=== PATIENT | male | born 1980 | race American Indian/Alaskan Native ===

== ENCOUNTER 2016-11-16 22:38 | Emergency (ER) | payer OTHER ==
[2016-11-17] MEDS ORDERED: DUONEB 0.5 MG-3 MG/3 ML SOLN IH ONE (03:29)
--- NOTE | 2016-11-17 04:51 | Emergency Department Report ---
ED Asthma HPI - General Chief Complaint: Dyspnea/Respdistress Stated Complaint: ASTHMA/CHEST PAIN Time Seen by Provider: 11/17/16 04:33 Source: patient Mode of arrival: Ambulatory Limitations: No Limitations - History of Present Illness Initial Comments: Patient complains of asthma acting up, wheezing, and chest tightness 2 days. States he has been trying to deal with symptoms at home until he couldn't anymore. Patient has a history of asthma which she states last acting up over a year ago when he was hospitalized due to his asthma. He states he has been out of his albuterol for a while. Positive for cough productive of clear-yellow sputum. Denies pressure-type chest pain, radiation into the neck or arm, arm weakness or numbness, GERD or reflux, fever, chills, nausea, vomiting, diarrhea, abdominal pain or discomfort, male symptoms. Denies recent illness. Denies known exposure or process chemist. Reports symptomatic improvement post Duoneb x1. - Related Data Previous Rx's Medication Instructions Recorded Last Taken Type ALBUTEROL Inhaler [ProAir HFA 2 puff IH QID PRN #1 inhalation 11/17/16 Unknown Rx Inhaler] predniSONE [Deltasone] 20 mg PO QDAY #5 tablet 11/17/16 Unknown Rx Allergies Allergy/AdvReac Type Severity Reaction Status Date / Time seafood Allergy Swelling Uncoded 11/16/16 22:56 ED Review of Systems ROS: Stated complaint: ASTHMA/CHEST PAIN Other details as noted in HPI Comment: All other systems reviewed and negative ED Past Medical Hx - Past Medical History Previous Medical History?: Yes Hx Asthma: Yes - Surgical History Past Surgical History?: Yes Additional Surgical History: amputated left 1st toe. - Medications Home Medications: Home Medications Medication Instructions Recorded Confirmed Last Taken Type ALBUTEROL Inhaler [ProAir HFA 2 puff IH QID PRN #1 inhalation 11/17/16 Unknown Rx Inhaler] predniSONE [Deltasone] 20 mg PO QDAY #5 tablet 11/17/16 Unknown Rx ED Physical Exam - General Limitations: No Limitations General appearance: alert, in no apparent distress - Head Head exam: Present: atraumatic, normocephalic - Eye Eye exam: Present: normal appearance, PERRL, EOMI - ENT ENT exam: Present: normal exam, normal orophraynx, mucous membranes moist, TM's normal bilaterally, normal external ear exam - Neck Neck exam: Present: normal inspection, full ROM. Absent: tenderness, meningismus, lymphadenopathy - Respiratory Respiratory exam: Present: wheezes (b/l). Absent: respiratory distress, rales, rhonchi, stridor, chest wall tenderness, accessory muscle use, decreased breath sounds, prolonged expiratory - Cardiovascular Cardiovascular Exam: Present: regular rate, normal rhythm - GI/Abdominal GI/Abdominal exam: Present: soft, normal bowel sounds. Absent: distended, tenderness - Extremities Exam Extremities exam: Present: normal inspection, full ROM, normal capillary refill. Absent: tenderness, pedal edema, joint swelling - Back Exam Back exam: Present: normal inspection, full ROM. Absent: tenderness, CVA tenderness (R), CVA tenderness (L) - Neurological Exam Neurological exam: Present: alert, oriented X3, normal gait. Absent: motor sensory deficit - Psychiatric Psychiatric exam: Present: normal affect, normal mood - Skin Skin exam: Present: warm, dry, intact, normal color. Absent: rash, cyanosis, diaphoretic, erythema, petechiae, pallor ED Course Vital Signs 11/16/16 22:48 Temperature 98.2 F Pulse Rate 70 Respiratory 18 Rate Blood Pressure 145/99 O2 Sat by Pulse 97 Oximetry ED Medical Decision Making - EKG Data -: EKG Interpreted by Me EKG shows normal: sinus rhythm Rate: normal (w/ Q waves in V1,V2. no acute ST changes.) Critical care attestation.: If time is entered above; I have spent that time in minutes in the direct care of this critically ill patient, excluding procedure time. ED Disposition Clinical Impression: Abnormal EKG Acute asthma exacerbation Qualifiers: Asthma severity: unspecified severity Qualified Code(s): J45.901 - Unspecified asthma with (acute) exacerbation Disposition: DISCHARGED TO HOME OR SELFCARE Is pt being admited?: No Does the pt Need Aspirin: No Condition: Stable Instructions: Asthma (ED) Additional Instructions: Follow-up instructions. Use medications as prescribed. Follow-up with asthma specialist and your primary care provider for follow-up. As discussed, follow-up with acupressurist for the abnormal EKG. Return to the ED for new or worsening conditions. Prescriptions: ALBUTEROL Inhaler [ProAir HFA Inhaler] 2 puff IH QID PRN #1 inhalation PRN Reason: Shortness Of Breath predniSONE [Deltasone] 20 mg PO QDAY #5 tablet Referrals: PRIMARY CARE, [Primary Care Provider] - 3-5 Days AKBAR CARR MD [Staff Physician] - 3-5 Days TIANA ARGUELLO MD [Staff Physician] - 3-5 Days
[2016-11-17 05:11] VITALS: BP 144/78
== END 2016-11-17 05:00 | disposition home or self-care (01) ==
LOC: ED 22:38
DX: J45.901 Unspecified asthma with (acute) exacerbation (principal); R94.31 Abnormal electrocardiogram [ECG] [EKG]; Z91.013 Allergy to seafood
CPT/HCPCS: 93005; 93010; 96372; 99283; J2930

== ENCOUNTER 2016-12-01 21:39 | Inpatient (IN) | payer OTHER ==
[2016-12-01 22:59] LABS: Hematocrit 45.4 % (35.5-45.6); Hemoglobin 15.1 gm/dl (11.8-15.2); Mean Corpuscular HGB Conc 33 % (32-34); Mean Corpuscular Hemoglobin 31 pg (28-32); Mean Corpuscular Volume 93 fl (84-94); Platelet Count 159 K/mm3 (140-440); Red Cell Distribution Width 13.4 % (13.2-15.2); White Blood Count 8.9 K/mm3 (4.5-11.0)
[2016-12-01 23:16] LABS: Anion Gap 17 mmol/L; BUN/Creatinine Ratio 7.27; Blood Urea Nitrogen 8 mg/dL (9-20); Calcium 9.2 mg/dL (8.4-10.2); Carbon Dioxide 29 mmol/L (22-30); Chloride 96.6 mmol/L (98-107); Glucose 116 mg/dL (75-100); Potassium 3.8 mmol/L (3.6-5.0); Sodium 139 mmol/L (137-145)
[2016-12-02 00:26] LABS: Blastocytes % (Manual) 0 %
[2016-12-02 00:27] LABS: Diff Status Complete; Platelet Estimate Consistent w Auto; RBC Morphology Normal
[2016-12-02] MEDS ORDERED: TYLENOL ONE (01:27)
[2016-12-02] MEDS ORDERED: TYLENOL PO ONE (01:29)
[2016-12-02] MEDS ORDERED: MAGNESIUM SULFATE 2GM/50ML 2 GM/50 ML BAG IV ONE (08:47)
[2016-12-02] MEDS ORDERED: PROVENTIL IH ONE (08:47)
[2016-12-02] MEDS ORDERED: ATROVENT IH ONE (08:47)
[2016-12-02] MEDS ORDERED: TORADOL IV ONE (08:47)
[2016-12-02] MEDS ORDERED: NACL 0.9% 1000 ML 1,000 ML IV ONE (08:48)
--- NOTE | 2016-12-02 08:48 | Emergency Department Report ---
ED General Adult HPI - General Chief complaint: Chest Pain Stated complaint: CHEST PAIN/SOB Time Seen by Provider: 12/02/16 08:39 Source: patient, RN notes reviewed, old records reviewed Mode of arrival: Stretcher Limitations: No Limitations - History of Present Illness Initial comments: This is a 36-year-old male. He is previously unknown to me. Does not have a primary care doctor. Reports a past medical history of asthma, recently seen in the hospital for asthma exacerbation. Denies lifetime admissions. Patient presents to the ER complaining of cough, wheezing, chest wall pain. Symptoms are consistent with prior episodes of asthma exacerbation. There is no posterior lower extremity pain. No recent trips greater than 4 hours. No recent hospital admissions. Positive diaphoresis, positive generalized decreased exercise tolerance, patient does admit to cocaine ingestion a few days ago. He is not homicidal. He is not suicidal. -: Gradual Location: chest, back Severity scale (0 -10): 8 Quality: aching Consistency: constant Improves with: rest Worsens with: movement Associated Symptoms: chest pain, cough, shortness of breath, weakness - Related Data Previous Rx's Medication Instructions Recorded Last Taken Type ALBUTEROL Inhaler [ProAir HFA 2 puff IH QID PRN #1 inhalation 11/17/16 Unknown Rx Inhaler] predniSONE [Deltasone] 20 mg PO QDAY #5 tablet 11/17/16 Unknown Rx Allergies Allergy/AdvReac Type Severity Reaction Status Date / Time seafood Allergy Swelling Uncoded 11/16/16 22:56 ED Review of Systems ROS: Stated complaint: CHEST PAIN/SOB Other details as noted in HPI Constitutional: diaphoresis, malaise, weakness Eyes: denies: vision change ENT: congestion. denies: epistaxis Respiratory: cough, shortness of breath, SOB with exertion, SOB at rest Cardiovascular: chest pain, dyspnea on exertion Gastrointestinal: denies: vomiting Genitourinary: denies: urgency, dysuria Musculoskeletal: denies: back pain, joint swelling, arthralgia Skin: denies: lesions Neurological: weakness Psychiatric: denies: homicidal thoughts, suicidal thoughts ED Past Medical Hx - Past Medical History Hx Asthma: Yes - Surgical History Additional Surgical History: amputated left 1st toe. - Social History Smoking Status: Current Every Day Smoker Substance Use Type: None - Medications Home Medications: Home Medications Medication Instructions Recorded Confirmed Last Taken Type ALBUTEROL Inhaler [ProAir HFA 2 puff IH QID PRN #1 inhalation 11/17/16 Unknown Rx Inhaler] predniSONE [Deltasone] 20 mg PO QDAY #5 tablet 11/17/16 Unknown Rx ED Physical Exam - General Limitations: Physical Limitation General appearance: alert, in distress, other (patient in distress, diaphoretic , increased work of breathing. Speaking in full sentences.) - Head Head exam: Present: atraumatic, normocephalic - Eye Eye exam: Present: normal appearance - ENT ENT exam: Present: normal exam, normal orophraynx, mucous membranes moist, normal external ear exam - Neck Neck exam: Present: normal inspection, full ROM. Absent: tenderness, meningismus - Respiratory Respiratory exam: Present: respiratory distress, rhonchi - Cardiovascular Cardiovascular Exam: Present: regular rate, normal rhythm, normal heart sounds. Absent: bradycardia, tachycardia, irregular rhythm, systolic murmur, diastolic murmur, rubs, gallop - GI/Abdominal GI/Abdominal exam: Present: soft, normal bowel sounds. Absent: distended, tenderness, guarding, rebound, rigid, pulsatile mass - Rectal Rectal exam: Present: deferred - Extremities Exam Extremities exam: Present: normal inspection, full ROM, normal capillary refill. Absent: tenderness, pedal edema, joint swelling, calf tenderness - Back Exam Back exam: Present: normal inspection, full ROM. Absent: tenderness, CVA tenderness (R), CVA tenderness (L), muscle spasm, paraspinal tenderness, vertebral tenderness - Neurological Exam Neurological exam: Present: alert, oriented X3, normal gait, other (Extraocular movements intact. Tongue midline. No facial droop. Facial sensation intact to light touch in the V1, V2, V3 distribution bilaterally. 5 and 5 strength in 4 extremities.. Sensation is intact to light touch in 4 extremities.). Absent : motor sensory deficit - Psychiatric Psychiatric exam: Present: anxious - Skin Skin exam: Present: warm, dry, intact, normal color. Absent: rash ED Course Vital Signs 12/01/16 12/02/16 12/02/16 22:12 01:31 04:44 Temperature 98.8 F 97.7 F Pulse Rate 90 74 Pulse Rate [ Throughout] Respiratory 20 18 18 Rate Respiratory Rate [ Throughout] Blood Pressure 168/108 154/90 Blood Pressure [Left] O2 Sat by Pulse 97 97 Oximetry 12/02/16 12/02/16 12/02/16 07:40 07:50 07:56 Temperature Pulse Rate 66 66 Pulse Rate [ Throughout] Respiratory 16 16 Rate Respiratory Rate [ Throughout] Blood Pressure 133/75 Blood Pressure 141/91 [Left] O2 Sat by Pulse 97 91 91 Oximetry 12/02/16 12/02/16 12/02/16 08:00 08:10 08:20 Temperature Pulse Rate 70 71 70 Pulse Rate [ Throughout] Respiratory 13 15 17 Rate Respiratory Rate [ Throughout] Blood Pressure 145/91 145/91 135/85 Blood Pressure [Left] O2 Sat by Pulse 92 92 93 Oximetry 12/02/16 12/02/16 12/02/16 08:30 08:40 08:56 Temperature Pulse Rate 71 69 78 Pulse Rate [ Throughout] Respiratory 16 16 17 Rate Respiratory Rate [ Throughout] Blood Pressure 136/86 136/86 136/86 Blood Pressure [Left] O2 Sat by Pulse 93 96 94 Oximetry 12/02/16 12/02/16 12/02/16 09:00 09:03 09:10 Temperature Pulse Rate 71 72 Pulse Rate [ 75 Throughout] Respiratory 14 15 Rate Respiratory 18 Rate [ Throughout] Blood Pressure 139/89 139/89 Blood Pressure [Left] O2 Sat by Pulse 93 91 Oximetry 12/02/16 12/02/16 12/02/16 09:20 09:30 09:40 Temperature Pulse Rate 74 75 84 Pulse Rate [ 78 Throughout] Respiratory 14 14 13 Rate Respiratory 18 Rate [ Throughout] Blood Pressure 136/86 117/67 117/67 Blood Pressure [Left] O2 Sat by Pulse 90 91 92 Oximetry 12/02/16 12/02/16 12/02/16 09:50 10:00 10:10 Temperature Pulse Rate 78 82 70 Pulse Rate [ Throughout] Respiratory 13 13 14 Rate Respiratory Rate [ Throughout] Blood Pressure 122/69 122/69 130/81 Blood Pressure [Left] O2 Sat by Pulse 91 89 88 Oximetry 12/02/16 12/02/16 12/02/16 10:20 10:30 10:40 Temperature Pulse Rate 62 77 82 Pulse Rate [ Throughout] Respiratory 17 12 13 Rate Respiratory Rate [ Throughout] Blood Pressure 133/79 138/82 138/82 Blood Pressure [Left] O2 Sat by Pulse 87 89 90 Oximetry 12/02/16 12/02/16 10:50 11:00 Temperature Pulse Rate 84 80 Pulse Rate [ Throughout] Respiratory 13 13 Rate Respiratory Rate [ Throughout] Blood Pressure 125/76 133/70 Blood Pressure [Left] O2 Sat by Pulse 92 94 Oximetry - Reevaluation(s) Reevaluation #1: 12/02/16 13:52 differential diagnosis: Asthma exacerbation, pneumonia, hypoxemic respiratory failure, bronchitis Assessment and plan: 36-year-old male with known history of asthma, medication noncompliance, who presents to the ER with asthma exacerbation. After 10 mg of albuterol, 1 mg of Atrovent, magnesium sulfate, steroids, I went back to evaluate the patient. He was wheezing, diaphoretic, and still hypoxic, and looked quite uncomfortable. ABG demonstrates mild hypoxemia. Given clinical presentation, incomplete resolution of physical exam findings and symptoms, patient admitted to the hospital for further evaluation and management. Troponin is negative multiple times, EKG essentially unremarkable, no pulmonary embolus or DVT risk factors, low risk by well's score, perc negative. The case is discussed with the Hospital physician, Dr. Anderson, who graciously accepts the patient to his service. ED Medical Decision Making - Lab Data Result diagrams: 12/01/16 22:40 12/01/16 22:40 Vital Signs 12/01/16 12/02/16 12/02/16 22:12 01:31 04:44 Temperature 98.8 F 97.7 F Pulse Rate 90 74 Pulse Rate [ Throughout] Respiratory 20 18 18 Rate Respiratory Rate [ Throughout] Blood Pressure 168/108 154/90 Blood Pressure [Left] O2 Sat by Pulse 97 97 Oximetry 12/02/16 12/02/16 12/02/16 07:40 07:50 07:56 Temperature Pulse Rate 66 66 Pulse Rate [ Throughout] Respiratory 16 16 Rate Respiratory Rate [ Throughout] Blood Pressure 133/75 Blood Pressure 141/91 [Left] O2 Sat by Pulse 97 91 91 Oximetry 12/02/16 12/02/16 12/02/16 08:00 08:10 08:20 Temperature Pulse Rate 70 71 70 Pulse Rate [ Throughout] Respiratory 13 15 17 Rate Respiratory Rate [ Throughout] Blood Pressure 145/91 145/91 135/85 Blood Pressure [Left] O2 Sat by Pulse 92 92 93 Oximetry 12/02/16 12/02/16 12/02/16 08:30 08:40 08:56 Temperature Pulse Rate 71 69 78 Pulse Rate [ Throughout] Respiratory 16 16 17 Rate Respiratory Rate [ Throughout] Blood Pressure 136/86 136/86 136/86 Blood Pressure [Left] O2 Sat by Pulse 93 96 94 Oximetry 12/02/16 12/02/16 12/02/16 09:00 09:03 09:10 Temperature Pulse Rate 71 72 Pulse Rate [ 75 Throughout] Respiratory 14 15 Rate Respiratory 18 Rate [ Throughout] Blood Pressure 139/89 139/89 Blood Pressure [Left] O2 Sat by Pulse 93 91 Oximetry 12/02/16 12/02/16 12/02/16 09:20 09:30 09:40 Temperature Pulse Rate 74 75 84 Pulse Rate [ 78 Throughout] Respiratory 14 14 13 Rate Respiratory 18 Rate [ Throughout] Blood Pressure 136/86 117/67 117/67 Blood Pressure [Left] O2 Sat by Pulse 90 91 92 Oximetry 12/02/16 12/02/16 12/02/16 09:50 10:00 10:10 Temperature Pulse Rate 78 82 70 Pulse Rate [ Throughout] Respiratory 13 13 14 Rate Respiratory Rate [ Throughout] Blood Pressure 122/69 122/69 130/81 Blood Pressure [Left] O2 Sat by Pulse 91 89 88 Oximetry 12/02/16 12/02/16 12/02/16 10:20 10:30 10:40 Temperature Pulse Rate 62 77 82 Pulse Rate [ Throughout] Respiratory 17 12 13 Rate Respiratory Rate [ Throughout] Blood Pressure 133/79 138/82 138/82 Blood Pressure [Left] O2 Sat by Pulse 87 89 90 Oximetry 12/02/16 12/02/16 10:50 11:00 Temperature Pulse Rate 84 80 Pulse Rate [ Throughout] Respiratory 13 13 Rate Respiratory Rate [ Throughout] Blood Pressure 125/76 133/70 Blood Pressure [Left] O2 Sat by Pulse 92 94 Oximetry Lab Results 12/01/16 12/01/16 12/02/16 Range/Units 22:40 22:40 01:26 WBC 8.9 (4.5-11.0) K/mm3 RBC 4.90 (3.65-5.03) M/mm3 Hgb 15.1 (11.8-15.2) gm/dl Hct 45.4 (35.5-45.6) % MCV 93 (84-94) fl MCH 31 (28-32) pg MCHC 33 (32-34) % RDW 13.4 (13.2-15.2) % Plt Count 159 (140-440) K/mm3 Add Manual Diff Complete Total Counted 100 Seg Neuts % (Manual) 73.0 H (40.0-70.0) % Band Neutrophils % 6.0 % Lymphocytes % (Manual) 11.0 L (13.4-35.0) % Reactive Lymphs % (Man) 0 % Monocytes % (Manual) 4.0 (0.0-7.3) % Eosinophils % (Manual) 4.0 (0.0-4.3) % Basophils % (Manual) 2.0 H (0.0-1.8) % Metamyelocytes % 0 % Myelocytes % 0 % Promyelocytes % 0 % Blast Cells % 0 % Nucleated RBC % Not Reportable Seg Neutrophils # Man 6.5 (1.8-7.7) K/mm3 Band Neutrophils # 0.5 K/mm3 Lymphocytes # (Manual) 1.0 L (1.2-5.4) K/mm3 Abs React Lymphs (Man) 0.0 K/mm3 Monocytes # (Manual) 0.4 (0.0-0.8) K/mm3 Eosinophils # (Manual) 0.4 (0.0-0.4) K/mm3 Basophils # (Manual) 0.2 H (0.0-0.1) K/mm3 Metamyelocytes # 0.0 K/mm3 Myelocytes # 0.0 K/mm3 Promyelocytes # 0.0 K/mm3 Blast Cells # 0.0 K/mm3 WBC Morphology Not Reportable Hypersegmented Neuts Not Reportable Hyposegmented Neuts Not Reportable Hypogranular Neuts Not Reportable Smudge Cells Not Reportable Toxic Granulation Not Reportable Toxic Vacuolation Not Reportable Dohle Bodies Not Reportable Pelger-Huet Anomaly Not Reportable Trevor Rods Not Reportable Platelet Estimate Consistent w auto Clumped Platelets Not Reportable Plt Clumps, EDTA Not Reportable Large Platelets Not Reportable Giant Platelets Not Reportable Platelet Satelliting Not Reportable Plt Morphology Comment Not Reportable RBC Morphology Normal Dimorphic RBCs Not Reportable Polychromasia Not Reportable Hypochromasia Not Reportable Poikilocytosis Not Reportable Anisocytosis Not Reportable Microcytosis Not Reportable Macrocytosis Not Reportable Spherocytes Not Reportable Pappenheimer Bodies Not Reportable Sickle Cells Not Reportable Target Cells Not Reportable Tear Drop Cells Not Reportable Ovalocytes Not Reportable Helmet Cells Not Reportable [place] Bodies Not Reportable [place] Rings Not Reportable [place] Cells Not Reportable Bite Cells Not Reportable Crenated Cell Not Reportable Elliptocytes Not Reportable Acanthocytes (Spur) Not Reportable Rouleaux Not Reportable Hemoglobin C Crystals Not Reportable Schistocytes Not Reportable Malaria parasites Not Reportable [place] Bodies Not Reportable Hem Pathologist Commnt No POC ABG pH (7.35-7.45) POC ABG pCO2 (35-45) POC ABG pO2 (80-105) POC ABG HCO3 POC ABG Total CO2 POC ABG O2 Sat POC ABG Base Excess FiO2 % Sodium 139 (137-145) mmol/L Potassium 3.8 (3.6-5.0) mmol/L Chloride 96.6 L (98-107) mmol/L Carbon Dioxide 29 (22-30) mmol/L Anion Gap 17 mmol/L BUN 8 L (9-20) mg/dL Creatinine 1.1 (0.8-1.5) mg/dL Estimated GFR > 60 ml/min BUN/Creatinine Ratio 7.27 % Glucose 116 H (75-100) mg/dL Calcium 9.2 (8.4-10.2) mg/dL Troponin T < 0.010 < 0.010 (0.00-0.029) ng/mL 12/02/16 12/02/16 Range/Units 04:51 11:13 WBC (4.5-11.0) K/mm3 RBC (3.65-5.03) M/mm3 Hgb (11.8-15.2) gm/dl Hct (35.5-45.6) % MCV (84-94) fl MCH (28-32) pg MCHC (32-34) % RDW (13.2-15.2) % Plt Count (140-440) K/mm3 Add Manual Diff Total Counted Seg Neuts % (Manual) (40.0-70.0) % Band Neutrophils % % Lymphocytes % (Manual) (13.4-35.0) % Reactive Lymphs % (Man) % Monocytes % (Manual) (0.0-7.3) % Eosinophils % (Manual) (0.0-4.3) % Basophils % (Manual) (0.0-1.8) % Metamyelocytes % % Myelocytes % % Promyelocytes % % Blast Cells % % Nucleated RBC % Seg Neutrophils # Man (1.8-7.7) K/mm3 Band Neutrophils # K/mm3 Lymphocytes # (Manual) (1.2-5.4) K/mm3 Abs React Lymphs (Man) K/mm3 Monocytes # (Manual) (0.0-0.8) K/mm3 Eosinophils # (Manual) (0.0-0.4) K/mm3 Basophils # (Manual) (0.0-0.1) K/mm3 Metamyelocytes # K/mm3 Myelocytes # K/mm3 Promyelocytes # K/mm3 Blast Cells # K/mm3 WBC Morphology Hypersegmented Neuts Hyposegmented Neuts Hypogranular Neuts Smudge Cells Toxic Granulation Toxic Vacuolation Dohle Bodies Pelger-Huet Anomaly Trevor Rods Platelet Estimate Clumped Platelets Plt Clumps, EDTA Large Platelets Giant Platelets Platelet Satelliting Plt Morphology Comment RBC Morphology Dimorphic RBCs Polychromasia Hypochromasia Poikilocytosis Anisocytosis Microcytosis Macrocytosis Spherocytes Pappenheimer Bodies Sickle Cells Target Cells Tear Drop Cells Ovalocytes Helmet Cells [place] Bodies [place] Rings [place] Cells Bite Cells Crenated Cell Elliptocytes Acanthocytes (Spur) Rouleaux Hemoglobin C Crystals Schistocytes Malaria parasites [place] Bodies Hem Pathologist Commnt POC ABG pH 7.344 L (7.35-7.45) POC ABG pCO2 38.6 (35-45) POC ABG pO2 71 L (80-105) POC ABG HCO3 21.0 POC ABG Total CO2 22 POC ABG O2 Sat 93 POC ABG Base Excess -5 FiO2 21 % Sodium (137-145) mmol/L Potassium (3.6-5.0) mmol/L Chloride (98-107) mmol/L Carbon Dioxide (22-30) mmol/L Anion Gap mmol/L BUN (9-20) mg/dL Creatinine (0.8-1.5) mg/dL Estimated GFR ml/min BUN/Creatinine Ratio % Glucose (75-100) mg/dL Calcium (8.4-10.2) mg/dL Troponin T < 0.010 (0.00-0.029) ng/mL - EKG Data -: EKG Interpreted by Me EKG shows normal: sinus rhythm Rate: normal, bradycardia - EKG Data Interpretation: normal EKG - Radiology Data Radiology results: report reviewed, image reviewed X-ray of the chest negative for acute disease. Critical care attestation.: If time is entered above; I have spent that time in minutes in the direct care of this critically ill patient, excluding procedure time. ED Disposition Clinical Impression: Hypoxemia, Asthma exacerbation Disposition: OP ADMITTED IP TO THIS HOSP Is pt being admited?: Yes Does the pt Need Aspirin: Yes Condition: Good
--- NOTE | 2016-12-02 09:00 | Admit Criteria Form ---
Admission Criteria Documentation: CARDIOLOGY GRG Clinical Indications for Admission to Inpatient Care ( Place 'X' for any and all applicable criteria): Hospital admission is needed for appropriate care of the patient because of ANY ONE of the following (1): [ ] I. Hemodynamic instability as indicated by ALL of the following (1)(2)(3) (4)(5) [ ]a) Vital signs or other findings not as expected for chronic patient condition or baseline [ ]b) Instability indicated by ANY ONE of the following: [ ]i) Hypotension [ ]ii) Symptomatic Tachycardia unresponsive to treatment ( e.g., analgesia, fluids, sedation as indicated) [ ]iii) Inadequate perfusion indicated by ANY ONE of the following: [ ] 1) Lactic acidosis (> 2 mmol/L) [ ] 2) New abnormal capillary refill (> 3 seconds) [ ] 3) Reduced urine output [ ] 4) New altered mental status [ ]iv) Orthostatic vital sign changes unresponsive to treatment (e.g., fluids) [ ]v) IV inotropic or vasopressor medication required to maintain adequate blood pressure or perfusion [ ] II. Severe heart failure as indicated by ANY ONE of the following(17)(18) [ ]a) Respiratory distress [ ]b) Hypotension [ ]c) Anasarca (refractory to outpatient therapy) [ ]d) Cardiac arrhythmias of immediate concern [ ]e) Myocardial ischemia [ ] III. Cardiac arrhythmias or findings of immediate concern indicated by ANY ONE of the following (19)(20): [ ] a) Heart rhythms that are inherently dangerous or unstable indicated by ANY ONE of the following (21)(22)(23): [ ] i) Resuscitated ventricular fibrillation or cardiac arrest [ ] ii) Ventricular escape rhythm [ ] iii) Sustained ventricular tachycardia (30 seconds or more of ventricular rhythm at greater than 100 beats per minute) [ ] iv) Nonsustained ventricular tachycardia and ANY ONE of the following: [ ] 1) Suspected cardiac ischemia as cause or consequence of ventricular tachycardia [ ] 2) In setting of acute myocarditis [ ] b) Unstable cardiac conduction defects indicated by ANY ONE of the following(23)(24)(25) [ ] i) Type II second-degree atrioventricular block [ ]ii) Third-degree atrioventricular block [ ]iii) New-onset left bundle branch block with suspected myocardial ischemia [ ]c) Any heart rhythm and ANY ONE of the following (21)(22)(26)(27) (28) [ ] i) Continuous long-term ECG monitoring needed (e.g., initiation of drug requiring monitoring for more than 24 hours) [ ] ii) Patient has automatic implanted cardioverter defibrillator that is repeatedly firing, malfunctioning, or in need of immediate adjustment of settings beyond the scope of ambulatory or observation care [ ]d) Heart rhythms of concern due to ANY ONE of the following: [ ] i) Hypotension [ ] ii) Respiratory distress [ ] iii) Association with other significant symptoms (e.g., bradycardia with syncope or ongoing dizziness, supraventricular tachycardia with chest pain (14)(15)(17) [ ] IV. Monitoring for cardiac contusion beyond the scope of observation care needed [A](30)(31)(32) [ ] V. Surgical or device complication (e.g., valve replacement complication , pacemaker dysfunction) (35)(41)(44)(45)(46) [ ] . Inpatient palliative care needed. [B](49) Also use Inpatient Palliative Care Criteria [ ] VII. Nonbacterial thrombotic (marantic) endocarditis (36)(43)(47)(48) [X ] VIII. Cardiology condition, symptom, or finding for which emergency and observation care has failed or are not considered appropriate. [ ] IX. Acute valvular disease requiring inpatient as indicated by ANY ONE of the following (41) [ ]a) Acute valvular regurgitation (42) [ ]b) Noninfectious valvulitis (43) [ ]c) Obstructive valve thrombosis [ ]d) Paravalvular leak [ ]e) Other significant valvular disorder remaining after emergency or observation level of care (as appropriate) [ ]X. Pericardial disease requiring inpatient treatment as indicated by ANY ONE of the following (33)(34)(35)(36)(37) [ ]a) Suspected tamponade (38)(39)(40) [ ]b) Hemopericardium [ ]c) Other significant pericardial disorder remaining after emergency or observation level of care (as appropriate) [ ] XI. Cardiac ischemia beyond scope of emergency and observation care. [ ] XII. Hypertension requiring inpatient treatment as indicated by ANY ONE of the following (6)(7)(8) [ ]a) SBP greater than 220 mm Hg or DBP greater than 120 mmHg despite treatment [ ]b) SBP greater than 140 mm Hg or DBP greater than 100 mm Hg with evidence of acute end organ damage as indicated by ANY ONE of the following [ ] i) Altered mental status [ ] ii) Acute renal failure as indicated by new onset of ANY ONE of the following (9)(10)(11)(12)(13) [ ]1) 3-fold rise in serum creatinine from baseline [ ]2) Serum creatinine greater than 4 mg/dL ( 354 micromoles/L) with acute rise greater than 0.5 mg/dL (44.2 micromoles/L) [ ]3) Reduction of more than 75% in estimated glomerular filtration rate from baseline [ ]4) Estimated glomerular filtration rate less than 35 mL/min/1.73m2 (0.59 mL/sec/1.73m2) in child up to 18 years of age [ ]5) Cessation of urine output indicated by ALL of the following [ ]A. Adequate volume status [ ]B. Inadequate urine output as indicated by ANY ONE of the following [ ]a. Urine output less than 0.3 mL/kg/hr for 24 hours [ ]b. Anuria (urine output less than 0.1 mL/kg/hr) for 12 hours [ ] iii) Aortic dissection [ ] iv) Myocardial Ischemia [ ] v) Left ventricular heart failure [ ]vi) Retinal Hemorrhage [ ]vii) Other significant finding [ ]c) Hypertension in child requiring inpatient treatment as indicated by ALL of the following(14)(15)(16) [ ] i) Outpatient treatment not effective, not available, or not appropriate [ ]ii) SBP or DBP greater than 95th percentile for age [ ]iii) Evidence of acute end organ damage as indicated by ANY ONE of the following [ ]1) Altered mental status [ ]2) Acute renal failure as indicated by new onset of ANY ONE of the following(9)(10)(11)(12)(13) [ ]A. 3-fold rise in serum creatinine from baseline [ ]B. Serum creatinine greater than 4 mg/dL (354 micromoles/L) with acute rise greater than 0.5 mg/dL (44.2 micromoles/L) [ ]C. Reduction of more than 75% in estimated glomerular filtration rate from baseline [ ]D. Estimated glomerular filtration rate less than 35 mL/min/1.73m2 (0.59 mL/sec/1.73m2) in child up to 18 years of age [ ]E. Cessation of urine output indicated by ALL of the following [ ]a. Adequate volume status [ ]b. Inadequate urine output as indicated by ANY ONE of the following [ ]i) Urine output less than 0.3 mL/kg/hr for 24 hours [ ]ii) Anuria ( urine output less than 0.1 mL/kg/hr) for 12 hours [ ]3) Severe headache [ ]4) Visual disturbance [ ]5) Retinal hemorrhage [ ]6) Other significant finding [ ]XIII. Complications of transplanted heart indicated by ANY ONE of the following(61): [ ]a) Acute graft rejection requiring inpatient management (eg, intravenous immunosuppression)(62)(63) [ ]b) Acute graft heart failure indicated by ANY ONE of the following(64): [ ]i) Hemodynamic instability [ ]ii) Cardiac arrhythmias of immediate concern [ ]iii) Pulmonary edema that is very severe (eg, mechanical ventilation needed, imminent or likely, need for 100% oxygen to keep oxygen saturation above 90%) [ ]iv) Pulmonary edema that is persistent as indicated by ALL of the following: [ ]1) New need for oxygen therapy to keep oxygen saturation above 90% (or increased FiO2 need from baseline) [ ]2) Has not improved sufficiently with emergency department or observation care IV diuretics or other heart failure treatments[E] [ ]v) Altered mental status that is severe or persistent [ ]vi) Increased creatinine (new on laboratory test) with reduction of more than 50% in estimated glomerular filtration rate from baseline [ ]vii) Progressively (ongoing) rising creatinine (known from past laboratory test) with reduction of more than 25% in estimated glomerular filtration rate from baseline [ ]viii) Acute renal failure [ ]ix) Acute peripheral ischemia (eg, examination shows pulseless, cool, mottled, or cyanotic extremity) [ ]x) Pulmonary artery catheter monitoring needed [ ]xi) Other sign or symptom of heart failure requiring inpatient treatment (ie, too severe or not responsive to outpatient and observation care treatment) [ ]c) Infection requiring inpatient management (eg, Hemodynamic instability, need for intravenous antimicrobial treatment)(66)(67)(68)(69)(70) [ ]d) Cardiac allograft vasculopathy requiring inpatient management ( eg evidence of cardiac ischemia)(71) [ ]e) Other complication of transplanted heart (eg, stroke, severe pulmonary hypertension, severe valvular dysfunction) requiring inpatient management(72) The original [facility] [employer] content created by [facility] [employer] has been revised. The portions of the content which have been revised are identified through the use of italic text or in bold, and [facility] has neither reviewed nor approved the modified material. All other unmodified content is copyright [facility] [employer]. Please see references footnoted in the original [facility] [employer] edition 2016 Admission Criteria Met: Yes
--- NOTE | 2016-12-02 09:01 | XRay Report ---
CHEST 2 VIEWS INDICATION: Cough, chest pain. COMPARISON: None similar at this institution. FINDINGS: PA and lateral chest radiographs, 3 images, demonstrate normal cardiomediastinal silhouette. Clear, well-expanded lungs. Intact bones. EKG leads. CONCLUSION: No acute disease in the chest. Thank you for the opportunity to participate in this patient's care.
[2016-12-02 11:17] LABS: ISTAT Base Excess -5; ISTAT DEVICE 0; ISTAT PCO2 38.6 (35-45); ISTAT PH 7.344 (7.35-7.45); ISTAT PO2 71 (80-105); ISTAT SO2 93; ISTAT TCO2 22
[2016-12-02] MEDS ORDERED: BABY ASPIRIN PO ONE (13:55)
--- NOTE | 2016-12-02 21:39 | Event Note ---
Date: 12/02/16 See H/p in reports
[2016-12-02] MEDS ORDERED: DILAUDID IV PRN (21:42)
[2016-12-02] MEDS ORDERED: TYLENOL PO PRN (21:42)
[2016-12-02] MEDS ORDERED: DULCOLAX PR PRN (21:42)
[2016-12-02] MEDS ORDERED: MILK OF MAGNESIA PO PRN (21:42)
[2016-12-02] MEDS ORDERED: ZOFRAN IV PRN (21:42)
[2016-12-02] MEDS ORDERED: AMBIEN PO PRN (21:42)
[2016-12-02] MEDS ORDERED: PROVENTIL IH PRN (21:46)
[2016-12-03] MEDS: LEVAQUIN 750MG/150ML 750 MG/150 ML BAG IV SCH ×2 (02:35→09:50)
--- NOTE | 2016-12-03 02:35 | History and Physical Report ---
CHIEF COMPLAINT: Increasing shortness of breath and wheezing for the last 2 days. HISTORY OF PRESENT ILLNESS: A 36-year-old male comes to the Emergency Room because of increasing shortness of breath and wheezing. Cough productive of mucoid sputum. The patient has history of asthma. The patient is taking albuterol inhaler and prednisone for the last 5 days, but with no relief. The patient admits to cocaine injection a few days ago. Diaphoretic. No fever, no chills. No recent long trips. Moderate respiratory distress at rest. No chest pain. PAST MEDICAL HISTORY: Significant for asthma. CURRENT MEDICATIONS: Albuterol inhaler and prednisone. Prednisone for the last 5 days, took it for 5 days from 11/17/2016 to 11/22/2016. PAST SURGICAL HISTORY: Amputated left first toe. SOCIAL HISTORY: Smokes about a pack a day. Marijuana and cocaine on intermittent basis. Alcohol on an intermittent basis. FAMILY HISTORY: Significant for hypertension. REVIEW OF SYSTEMS: CONSTITUTIONAL: No fever, no chills, no weight loss, no weight gain. EYES: No sore throat, no postnasal drip. CARDIOVASCULAR AND RESPIRATORY: Wheezing and cough productive of mucoid sputum present. GASTROINTESTINAL: No nausea, no vomiting, no diarrhea. GENITOURINARY: No dysuria, no flank pain. MUSCULOSKELETAL: No joint pains. CENTRAL NERVOUS SYSTEM: No syncope, no seizures. PSYCHIATRIC: No homicidal or suicidal ideation. HEMATOLOGIC AND LYMPHATIC: No lymphedema, no bruising. A 14-point review of systems done, other than history of present illness review of systems is negative. PHYSICAL EXAMINATION: GENERAL: Young male, cooperative during examination, in moderate respiratory distress. VITAL SIGNS: Blood pressure is repeat was 154/90, temperature is 98.8, pulse is 90, respiratory rate is 20. HEENT: Unremarkable. Pupils equal and reactive. Posterior pharynx is normal. NECK: Supple. Accessory muscles of respiration are prominent. LUNGS: Bilateral inspiratory and expiratory rhonchi present. No chest wall tenderness present. CARDIOVASCULAR: S1, S2 heard. No gallop, no murmur, no rub. Apical impulse in left fifth intercostal space and midclavicular line. ABDOMEN: Soft and benign. No hepatosplenomegaly. No guarding, no rigidity. Hernial orifices are normal. EXTREMITIES: Good pedal pulses. No pedal edema. CENTRAL NERVOUS SYSTEM: Alert and oriented x 4, nonfocal exam. LABORATORY DATA: White count is 8900, H and H is 15.1 and 45.4, platelet count is 159,000. Electrolytes are normal. Glucose is . ABG significant for pH of 7.344, pCO2 of 38.6, pO2 of 71, bicarbonate of 21, total CO2 of 22, O2 sats of 93%, FIO2 of 21. Chest x-ray, no infiltrates. ASSESSMENT AND PLAN: 1. Asthma excerebration. The patient started on IV Solu-Medrol 80 mg q.8, albuterol nebulizer solution q. 6 round the clock and q. 3 p.r.n. and IV Levaquin. 2. Cocaine and nicotine dependence, Nicoderm patch. WA protocol if necessary. 3. Deep venous thrombosis prophylaxis, Lovenox 40 mg subcutaneous daily. JOB# [id number] GIDEON/NICOLA
[2016-12-03] MEDS: D5NS 1,000 ML IV SCH ×3 (02:37→19:54)
[2016-12-03] MEDS: PROVENTIL IH SCH ×5 (02:50→19:41)
[2016-12-03 03:21] LABS: Basophils % (Auto) 0.2 % (0.0-1.8); Hematocrit 43.9 % (35.5-45.6); Hemoglobin 14.6 gm/dl (11.8-15.2); Mean Corpuscular HGB Conc 33 % (32-34); Mean Corpuscular Hemoglobin 30 pg (28-32); Mean Corpuscular Volume 91 fl (84-94); Platelet Count 156 K/mm3 (140-440); Red Blood Count 4.83 M/mm3 (3.65-5.03); Red Cell Distribution Width 13.4 % (13.2-15.2); White Blood Count 19.7 K/mm3 (4.5-11.0)
[2016-12-03 06:31] LABS: Sodium 142 mmol/L (137-145)
[2016-12-03 06:32] LABS: Alanine Aminotransferase 16 units/L (7-56); Albumin 3.5 g/dL (3.9-5); Albumin/Globulin Ratio 1.3 %; Alkaline Phosphatase 79 units/L (35-129); Anion Gap 15 mmol/L; Bilirubin,Total 0.3 mg/dL (0.1-1.2); Blood Urea Nitrogen 13 mg/dL (9-20); Calcium 8.9 mg/dL (8.4-10.2); Carbon Dioxide 27 mmol/L (22-30); Glucose 128 mg/dL (75-100); Total Protein 6.3 g/dL (6.3-8.2)
[2016-12-03] MEDS: LOVENOX SUB-Q SCH (09:52)
[2016-12-03] MEDS: HABITROL TD SCH (09:52)
[2016-12-03] MEDS: PERCOCET 5/325 PO PRN ×2 (14:56→22:38)
[2016-12-04] MEDS: PROVENTIL IH SCH ×4 (02:57→20:37)
--- NOTE | 2016-12-04 05:10 | Progress Note ---
History Interval history: Pt resting in bed, NO reported nursing events. Pt states that he is still short of breath. Hospitalist Physical - Constitutional Vitals: Temp Pulse Resp BP Pulse Ox 98 F 87 18 139/85 97 12/03/16 14:45 12/03/16 19:41 12/03/16 22:00 12/03/16 14:45 12/03/16 14:45 General appearance: Present: mild distress - EENT Eyes: Present: PERRL ENT: hearing intact - Neck Neck: Present: supple - Respiratory Respiratory: bilateral: diminished, wheezing - Cardiovascular Rhythm: regular Heart Sounds: Present: S1 & S2 - Extremities Extremities: no ischemia Peripheral Pulses: within normal limits - Abdominal General gastrointestinal: soft, non-tender, non-distended - Integumentary Integumentary: Present: clear, dry - Psychiatric Psychiatric: appropriate mood/affect, cooperative - Neurologic Neurologic: CNII-XII intact Results - Labs CBC & Chem 7: 12/03/16 02:50 12/03/16 02:50 Labs: Laboratory Last Values WBC 19.7 K/mm3 (4.5-11.0) H 12/03/16 02:50 RBC 4.83 M/mm3 (3.65-5.03) 12/03/16 02:50 Hgb 14.6 gm/dl (11.8-15.2) 12/03/16 02:50 Hct 43.9 % (35.5-45.6) 12/03/16 02:50 MCV 91 fl (84-94) 12/03/16 02:50 MCH 30 pg (28-32) 12/03/16 02:50 MCHC 33 % (32-34) 12/03/16 02:50 RDW 13.4 % (13.2-15.2) 12/03/16 02:50 Plt Count 156 K/mm3 (140-440) 12/03/16 02:50 Lymph % (Auto) 7.3 % (13.4-35.0) L 12/03/16 02:50 [place] % (Auto) 7.9 % (0.0-7.3) H 12/03/16 02:50 Eos % (Auto) 0.0 % (0.0-4.3) 12/03/16 02:50 Baso % (Auto) 0.2 % (0.0-1.8) 12/03/16 02:50 Lymph # 1.4 K/mm3 (1.2-5.4) 12/03/16 02:50 [place] # 1.6 K/mm3 (0.0-0.8) H 12/03/16 02:50 Eos # 0.0 K/mm3 (0.0-0.4) 12/03/16 02:50 Baso # 0.0 K/mm3 (0.0-0.1) 12/03/16 02:50 Add Manual Diff Complete 12/01/16 22:40 Total Counted 100 12/01/16 22:40 Seg Neutrophils % 84.6 % (40.0-70.0) H 12/03/16 02:50 Seg Neuts % (Manual) 73.0 % (40.0-70.0) H 12/01/16 22:40 Band Neutrophils % 6.0 % 12/01/16 22:40 Lymphocytes % (Manual) 11.0 % (13.4-35.0) L 12/01/16 22:40 Reactive Lymphs % (Man) 0 % 12/01/16 22:40 Monocytes % (Manual) 4.0 % (0.0-7.3) 12/01/16 22:40 Eosinophils % (Manual) 4.0 % (0.0-4.3) 12/01/16 22:40 Basophils % (Manual) 2.0 % (0.0-1.8) H 12/01/16 22:40 Metamyelocytes % 0 % 12/01/16 22:40 Myelocytes % 0 % 12/01/16 22:40 Promyelocytes % 0 % 12/01/16 22:40 Blast Cells % 0 % 12/01/16 22:40 Nucleated RBC % Not Reportable 12/01/16 22:40 Seg Neutrophils # 16.6 K/mm3 (1.8-7.7) H 12/03/16 02:50 Seg Neutrophils # Man 6.5 K/mm3 (1.8-7.7) 12/01/16 22:40 Band Neutrophils # 0.5 K/mm3 12/01/16 22:40 Lymphocytes # (Manual) 1.0 K/mm3 (1.2-5.4) L 12/01/16 22:40 Abs React Lymphs (Man) 0.0 K/mm3 12/01/16 22:40 Monocytes # (Manual) 0.4 K/mm3 (0.0-0.8) 12/01/16 22:40 Eosinophils # (Manual) 0.4 K/mm3 (0.0-0.4) 12/01/16 22:40 Basophils # (Manual) 0.2 K/mm3 (0.0-0.1) H 12/01/16 22:40 Metamyelocytes # 0.0 K/mm3 12/01/16 22:40 Myelocytes # 0.0 K/mm3 12/01/16 22:40 Promyelocytes # 0.0 K/mm3 12/01/16 22:40 Blast Cells # 0.0 K/mm3 12/01/16 22:40 WBC Morphology Not Reportable 12/01/16 22:40 Hypersegmented Neuts Not Reportable 12/01/16 22:40 Hyposegmented Neuts Not Reportable 12/01/16 22:40 Hypogranular Neuts Not Reportable 12/01/16 22:40 Smudge Cells Not Reportable 12/01/16 22:40 Toxic Granulation Not Reportable 12/01/16 22:40 Toxic Vacuolation Not Reportable 12/01/16 22:40 Dohle Bodies Not Reportable 12/01/16 22:40 Pelger-Huet Anomaly Not Reportable 12/01/16 22:40 Trevor Rods Not Reportable 12/01/16 22:40 Platelet Estimate Consistent w auto 12/01/16 22:40 Clumped Platelets Not Reportable 12/01/16 22:40 Plt Clumps, EDTA Not Reportable 12/01/16 22:40 Large Platelets Not Reportable 12/01/16 22:40 Giant Platelets Not Reportable 12/01/16 22:40 Platelet Satelliting Not Reportable 12/01/16 22:40 Plt Morphology Comment Not Reportable 12/01/16 22:40 RBC Morphology Normal 12/01/16 22:40 Dimorphic RBCs Not Reportable 12/01/16 22:40 Polychromasia Not Reportable 12/01/16 22:40 Hypochromasia Not Reportable 12/01/16 22:40 Poikilocytosis Not Reportable 12/01/16 22:40 Anisocytosis Not Reportable 12/01/16 22:40 Microcytosis Not Reportable 12/01/16 22:40 Macrocytosis Not Reportable 12/01/16 22:40 Spherocytes Not Reportable 12/01/16 22:40 Pappenheimer Bodies Not Reportable 12/01/16 22:40 Sickle Cells Not Reportable 12/01/16 22:40 Target Cells Not Reportable 12/01/16 22:40 Tear Drop Cells Not Reportable 12/01/16 22:40 Ovalocytes Not Reportable 12/01/16 22:40 Helmet Cells Not Reportable 12/01/16 22:40 [place] Bodies Not Reportable 12/01/16 22:40 [place] Rings Not Reportable 12/01/16 22:40 [place] Cells Not Reportable 12/01/16 22:40 Bite Cells Not Reportable 12/01/16 22:40 Crenated Cell Not Reportable 12/01/16 22:40 Elliptocytes Not Reportable 12/01/16 22:40 Acanthocytes (Spur) Not Reportable 12/01/16 22:40 Rouleaux Not Reportable 12/01/16 22:40 Hemoglobin C Crystals Not Reportable 12/01/16 22:40 Schistocytes Not Reportable 12/01/16 22:40 Malaria parasites Not Reportable 12/01/16 22:40 [place] Bodies Not Reportable 12/01/16 22:40 Hem Pathologist Commnt No 12/01/16 22:40 POC ABG pH 7.344 (7.35-7.45) L 12/02/16 11:13 POC ABG pCO2 38.6 (35-45) 12/02/16 11:13 POC ABG pO2 71 (80-105) L 12/02/16 11:13 POC ABG HCO3 21.0 12/02/16 11:13 POC ABG Total CO2 22 12/02/16 11:13 POC ABG O2 Sat 93 12/02/16 11:13 POC ABG Base Excess -5 12/02/16 11:13 FiO2 21 % 12/02/16 11:13 Sodium 142 mmol/L (137-145) 12/03/16 02:50 Potassium 4.0 mmol/L (3.6-5.0) 12/03/16 02:50 Chloride 104.0 mmol/L (98-107) 12/03/16 02:50 Carbon Dioxide 27 mmol/L (22-30) 12/03/16 02:50 Anion Gap 15 mmol/L 12/03/16 02:50 BUN 13 mg/dL (9-20) 12/03/16 02:50 Creatinine 1.0 mg/dL (0.8-1.5) 12/03/16 02:50 Estimated GFR > 60 ml/min 12/03/16 02:50 BUN/Creatinine Ratio 13.00 % 12/03/16 02:50 Glucose 128 mg/dL (75-100) H 12/03/16 02:50 Calcium 8.9 mg/dL (8.4-10.2) 12/03/16 02:50 Total Bilirubin 0.3 mg/dL (0.1-1.2) 12/03/16 02:50 AST 19 units/L (5-40) 12/03/16 02:50 ALT 16 units/L (7-56) 12/03/16 02:50 Alkaline Phosphatase 79 units/L (35-129) 12/03/16 02:50 Troponin T < 0.010 ng/mL (0.00-0.029) 12/02/16 04:51 Total Protein 6.3 g/dL (6.3-8.2) 12/03/16 02:50 Albumin 3.5 g/dL (3.9-5) L 12/03/16 02:50 Albumin/Globulin Ratio 1.3 % 12/03/16 02:50
[2016-12-04] MEDS: D5NS 1,000 ML IV SCH ×2 (07:24→23:04)
[2016-12-04] MEDS: LEVAQUIN 750MG/150ML 750 MG/150 ML BAG IV SCH (09:08)
[2016-12-04] MEDS: LOVENOX SUB-Q SCH (09:08)
[2016-12-04] MEDS: HABITROL TD SCH (09:08)
[2016-12-04] MEDS: PERCOCET 5/325 PO PRN ×2 (09:11→20:53)
--- NOTE | 2016-12-04 18:11 | Progress Note ---
Assessment and Plan - Patient Problems (1) Asthma exacerbation Current Visit: Yes Status: Acute (2) Nicotine dependence Current Visit: Yes Status: Acute Qualifiers: Nicotine product type: N Substance use status: S (3) DVT prophylaxis Current Visit: Yes Status: Acute History Interval history: Pt resting in bed, NO reported nursing events. Pt states that he is still short of breath again today, but breathing better than yesterday. Hospitalist Physical - Constitutional Vitals: Temp Pulse Resp BP Pulse Ox 98.4 F 83 16 162/97 98 12/04/16 07:30 12/04/16 14:43 12/04/16 14:43 12/04/16 07:30 12/04/16 07:30 General appearance: Present: mild distress - EENT Eyes: Present: PERRL ENT: hearing intact - Neck Neck: Present: supple - Respiratory Respiratory: bilateral: diminished, wheezing - Cardiovascular Rhythm: regular Heart Sounds: Present: S1 & S2 - Extremities Extremities: no ischemia Peripheral Pulses: within normal limits - Abdominal General gastrointestinal: soft, non-tender, non-distended - Integumentary Integumentary: Present: clear, dry - Psychiatric Psychiatric: appropriate mood/affect, cooperative - Neurologic Neurologic: CNII-XII intact Results - Labs CBC & Chem 7: 12/03/16 02:50 12/03/16 02:50 Labs: Laboratory Last Values WBC 19.7 K/mm3 (4.5-11.0) H 12/03/16 02:50 RBC 4.83 M/mm3 (3.65-5.03) 12/03/16 02:50 Hgb 14.6 gm/dl (11.8-15.2) 12/03/16 02:50 Hct 43.9 % (35.5-45.6) 12/03/16 02:50 MCV 91 fl (84-94) 12/03/16 02:50 MCH 30 pg (28-32) 12/03/16 02:50 MCHC 33 % (32-34) 12/03/16 02:50 RDW 13.4 % (13.2-15.2) 12/03/16 02:50 Plt Count 156 K/mm3 (140-440) 12/03/16 02:50 Lymph % (Auto) 7.3 % (13.4-35.0) L 12/03/16 02:50 Bucks % (Auto) 7.9 % (0.0-7.3) H 12/03/16 02:50 Eos % (Auto) 0.0 % (0.0-4.3) 12/03/16 02:50 Baso % (Auto) 0.2 % (0.0-1.8) 12/03/16 02:50 Lymph # 1.4 K/mm3 (1.2-5.4) 12/03/16 02:50 Bucks # 1.6 K/mm3 (0.0-0.8) H 12/03/16 02:50 Eos # 0.0 K/mm3 (0.0-0.4) 12/03/16 02:50 Baso # 0.0 K/mm3 (0.0-0.1) 12/03/16 02:50 Add Manual Diff Complete 12/01/16 22:40 Total Counted 100 12/01/16 22:40 Seg Neutrophils % 84.6 % (40.0-70.0) H 12/03/16 02:50 Seg Neuts % (Manual) 73.0 % (40.0-70.0) H 12/01/16 22:40 Band Neutrophils % 6.0 % 12/01/16 22:40 Lymphocytes % (Manual) 11.0 % (13.4-35.0) L 12/01/16 22:40 Reactive Lymphs % (Man) 0 % 12/01/16 22:40 Monocytes % (Manual) 4.0 % (0.0-7.3) 12/01/16 22:40 Eosinophils % (Manual) 4.0 % (0.0-4.3) 12/01/16 22:40 Basophils % (Manual) 2.0 % (0.0-1.8) H 12/01/16 22:40 Metamyelocytes % 0 % 12/01/16 22:40 Myelocytes % 0 % 12/01/16 22:40 Promyelocytes % 0 % 12/01/16 22:40 Blast Cells % 0 % 12/01/16 22:40 Nucleated RBC % Not Reportable 12/01/16 22:40 Seg Neutrophils # 16.6 K/mm3 (1.8-7.7) H 12/03/16 02:50 Seg Neutrophils # Man 6.5 K/mm3 (1.8-7.7) 12/01/16 22:40 Band Neutrophils # 0.5 K/mm3 12/01/16 22:40 Lymphocytes # (Manual) 1.0 K/mm3 (1.2-5.4) L 12/01/16 22:40 Abs React Lymphs (Man) 0.0 K/mm3 12/01/16 22:40 Monocytes # (Manual) 0.4 K/mm3 (0.0-0.8) 12/01/16 22:40 Eosinophils # (Manual) 0.4 K/mm3 (0.0-0.4) 12/01/16 22:40 Basophils # (Manual) 0.2 K/mm3 (0.0-0.1) H 12/01/16 22:40 Metamyelocytes # 0.0 K/mm3 12/01/16 22:40 Myelocytes # 0.0 K/mm3 12/01/16 22:40 Promyelocytes # 0.0 K/mm3 12/01/16 22:40 Blast Cells # 0.0 K/mm3 12/01/16 22:40 WBC Morphology Not Reportable 12/01/16 22:40 Hypersegmented Neuts Not Reportable 12/01/16 22:40 Hyposegmented Neuts Not Reportable 12/01/16 22:40 Hypogranular Neuts Not Reportable 12/01/16 22:40 Smudge Cells Not Reportable 12/01/16 22:40 Toxic Granulation Not Reportable 12/01/16 22:40 Toxic Vacuolation Not Reportable 12/01/16 22:40 Dohle Bodies Not Reportable 12/01/16 22:40 Pelger-Huet Anomaly Not Reportable 12/01/16 22:40 Trevor Rods Not Reportable 12/01/16 22:40 Platelet Estimate Consistent w auto 12/01/16 22:40 Clumped Platelets Not Reportable 12/01/16 22:40 Plt Clumps, EDTA Not Reportable 12/01/16 22:40 Large Platelets Not Reportable 12/01/16 22:40 Giant Platelets Not Reportable 12/01/16 22:40 Platelet Satelliting Not Reportable 12/01/16 22:40 Plt Morphology Comment Not Reportable 12/01/16 22:40 RBC Morphology Normal 12/01/16 22:40 Dimorphic RBCs Not Reportable 12/01/16 22:40 Polychromasia Not Reportable 12/01/16 22:40 Hypochromasia Not Reportable 12/01/16 22:40 Poikilocytosis Not Reportable 12/01/16 22:40 Anisocytosis Not Reportable 12/01/16 22:40 Microcytosis Not Reportable 12/01/16 22:40 Macrocytosis Not Reportable 12/01/16 22:40 Spherocytes Not Reportable 12/01/16 22:40 Pappenheimer Bodies Not Reportable 12/01/16 22:40 Sickle Cells Not Reportable 12/01/16 22:40 Target Cells Not Reportable 12/01/16 22:40 Tear Drop Cells Not Reportable 12/01/16 22:40 Ovalocytes Not Reportable 12/01/16 22:40 Helmet Cells Not Reportable 12/01/16 22:40 Funes-Volant Bodies Not Reportable 12/01/16 22:40 [place] Rings Not Reportable 12/01/16 22:40 [place] Cells Not Reportable 12/01/16 22:40 Bite Cells Not Reportable 12/01/16 22:40 Crenated Cell Not Reportable 12/01/16 22:40 Elliptocytes Not Reportable 12/01/16 22:40 Acanthocytes (Spur) Not Reportable 12/01/16 22:40 Rouleaux Not Reportable 12/01/16 22:40 Hemoglobin C Crystals Not Reportable 12/01/16 22:40 Schistocytes Not Reportable 12/01/16 22:40 Malaria parasites Not Reportable 12/01/16 22:40 Paxton Bodies Not Reportable 12/01/16 22:40 Hem Pathologist Commnt No 12/01/16 22:40 POC ABG pH 7.344 (7.35-7.45) L 12/02/16 11:13 POC ABG pCO2 38.6 (35-45) 12/02/16 11:13 POC ABG pO2 71 (80-105) L 12/02/16 11:13 POC ABG HCO3 21.0 12/02/16 11:13 POC ABG Total CO2 22 12/02/16 11:13 POC ABG O2 Sat 93 12/02/16 11:13 POC ABG Base Excess -5 12/02/16 11:13 FiO2 21 % 12/02/16 11:13 Sodium 142 mmol/L (137-145) 12/03/16 02:50 Potassium 4.0 mmol/L (3.6-5.0) 12/03/16 02:50 Chloride 104.0 mmol/L (98-107) 12/03/16 02:50 Carbon Dioxide 27 mmol/L (22-30) 12/03/16 02:50 Anion Gap 15 mmol/L 12/03/16 02:50 BUN 13 mg/dL (9-20) 12/03/16 02:50 Creatinine 1.0 mg/dL (0.8-1.5) 12/03/16 02:50 Estimated GFR > 60 ml/min 12/03/16 02:50 BUN/Creatinine Ratio 13.00 % 12/03/16 02:50 Glucose 128 mg/dL (75-100) H 12/03/16 02:50 Calcium 8.9 mg/dL (8.4-10.2) 12/03/16 02:50 Total Bilirubin 0.3 mg/dL (0.1-1.2) 12/03/16 02:50 AST 19 units/L (5-40) 12/03/16 02:50 ALT 16 units/L (7-56) 12/03/16 02:50 Alkaline Phosphatase 79 units/L (35-129) 12/03/16 02:50 Troponin T < 0.010 ng/mL (0.00-0.029) 12/02/16 04:51 Total Protein 6.3 g/dL (6.3-8.2) 12/03/16 02:50 Albumin 3.5 g/dL (3.9-5) L 12/03/16 02:50 Albumin/Globulin Ratio 1.3 % 12/03/16 02:50
[2016-12-05] MEDS: PROVENTIL IH SCH ×2 (07:29→13:00)
[2016-12-05 07:47] VITALS: BP 144/91
[2016-12-05] MEDS ORDERED: DELTASONE PO SCH (10:00)
[2016-12-05] MEDS: HABITROL TD SCH (10:23)
[2016-12-05] MEDS: LOVENOX SUB-Q SCH (10:24)
[2016-12-05] MEDS: LEVAQUIN 750MG/150ML 750 MG/150 ML BAG IV SCH (10:30)
--- NOTE | 2016-12-05 14:09 | Discharge Summary ---
Providers - Providers Date of Admission: 12/02/16 12:08 Attending physician: JULIA SHIRLEY Primary care physician: CIVILIAN JAIL OFFICER Hospitalization Condition: Good Hospital course: 36 YO Male admitted for Asthma Exacerbation, Respiratory Failure secondary to Nicotine dependence. Pt treated [facility] asthma exacerbation protocol. Pt convalesced well during hospital course. Pt symptoms resolved with therapy. Pt medically optimized and back to usual state of health. Pt seen and evaluated but no significant new physical exam findings since admission. Pt discharged home and instructed to f/u pcp 1wk. 35 minutes dedicated to patient discharge and education. Pt counseled regarding balanced diet, and avoidance of asthma triggers, and smoking cessation. Disposition: DISCHARGED TO HOME OR SELFCARE - Discharge Diagnoses (1) Asthma exacerbation Status: Acute (2) Nicotine dependence Status: Acute Qualifiers: Nicotine product type: N Substance use status: S (3) DVT prophylaxis Status: Acute Core Measure Documentation - Palliative Care Palliative Care/ Comfort Measures: Not Applicable - Core Measures Any of the following diagnoses?: none Exam - Constitutional Vitals: Temp Pulse Resp BP Pulse Ox 97.3 F L 83 20 144/91 97 12/05/16 07:45 12/05/16 13:10 12/05/16 13:10 12/05/16 07:45 12/05/16 07:45 General appearance: Present: no acute distress, well-nourished - EENT Eyes: Present: PERRL ENT: hearing intact, clear oral mucosa - Neck Neck: Present: supple, normal ROM - Respiratory Respiratory effort: normal Respiratory: bilateral: CTA - Cardiovascular Heart Sounds: Present: S1 & S2. Absent: rub, click - Extremities Extremities: pulses symmetrical, No edema Peripheral Pulses: within normal limits - Abdominal General gastrointestinal: Present: soft, non-tender, non-distended, normal bowel sounds Male genitourinary: Present: normal - Integumentary Integumentary: Present: clear, warm, dry - Musculoskeletal Musculoskeletal: gait normal, strength equal bilaterally - Psychiatric Psychiatric: appropriate mood/affect, intact judgment & insight - Neurologic Neurologic: CNII-XII intact, moves all extremities Plan Activity: advance as tolerated Follow up with: PRIMARY CARE, [Primary Care Provider] - 3-5 Days Prescriptions: Albuterol Sulfate [Albuterol 0.63% NEBS] 0.63 mg IH TID PRN #1 box PRN Reason: Wheezing Azithromycin [Zithromax TAB] 250 mg PO QDAY #6 tablet Compressor, For Nebulizer [Ebase Controller] 1 each MC TID PRN #1 each PRN Reason: Wheezing Ipratropium [Atrovent NEB] 0.5 mg IH Q6HRT PRN #1 box PRN Reason: Wheezing Ipratropium [Atrovent NEB] 0.5 mg IH Q6HRT #1 box Prednisone [predniSONE 10 mg (6-Day Pack, 21 Tabs)] 10 mg PO .TAPER #1 tab.ds.pk
[2016-12-06] MEDS ORDERED: LEVAQUIN PO SCH (10:00)
== END 2016-12-05 15:37 | disposition home or self-care (01) | DRG 189 ==
LOC: ED 21:39 → 3A 12-02 12:08
PROVIDERS: ADMIT Internal Medicine; ATTEND Internal Medicine
DX: J96.91 Respiratory failure, unspecified with hypoxia (principal); J45.901 Unspecified asthma with (acute) exacerbation; F14.20 Cocaine dependence, uncomplicated; F17.210 Nicotine dependence, cigarettes, uncomplicated; Z91.013 Allergy to seafood; Z89.422 Acquired absence of other left toe(s); E87.6 Hypokalemia; Z82.49 Family history of ischemic heart disease and other diseases of the circulatory system
CPT/HCPCS: 36415; 71020; 80048; 80053; 82803; 84484; 85007; 85025; 93005; 93010; 94640; 96365; 96375; 99406; J1650; J1885; J1956; J2930; J3475; J7030; J7042; J7512

== ENCOUNTER 2017-12-09 14:30 | Emergency (ER) | payer OTHER ==
--- NOTE | 2017-12-09 15:16 | Emergency Department Report ---
Blank Doc - Documentation Documentation: Patient is a 37-year-old black male who is presenting with 4 days of off and on chest pains. Patient states feels like a tightness in the chest. Patient states is 6 out of 10 severity is no radiation into the neck or arms. Patient also has had a cough productive of yellow sputum. Patient states she's been really fatigued and tired and sleeping a lot denies any fevers nausea vomiting abdominal pain at this time. Patient was wheezing on brief physical exam patient be moved to a treatment area to get a breathing treatment as well as check chest x-ray to rule out pneumonia and laboratory studies.
[2017-12-09] MEDS ORDERED: NACL 0.9% 1000 ML 1,000 ML IV ONE (15:17)
[2017-12-09] MEDS ORDERED: PROVENTIL IH ONE (15:17)
[2017-12-09] MEDS ORDERED: ATROVENT IH ONE (15:17)
[2017-12-09 15:30] LABS: Basophils # (Auto) 0.1 K/mm3 (0.0-0.1); Basophils % (Auto) 0.8 % (0.0-1.8); Eosinophils # (Auto) 0.4 K/mm3 (0.0-0.4); Eosinophils % (Auto) 6.2 % (0.0-4.3); Hematocrit 43.6 % (35.5-45.6); Hemoglobin 14.8 gm/dl (11.8-15.2); Lymphocytes # (Auto) 1.8 K/mm3 (1.2-5.4); Lymphocytes % (Auto) 25.2 % (13.4-35.0); Mean Corpuscular HGB Conc 34 % (32-34); Mean Corpuscular Hemoglobin 30 pg (28-32); Mean Corpuscular Volume 90 fl (84-94); Monocytes # (Auto) 0.6 K/mm3 (0.0-0.8); Monocytes % (Auto) 8.8 % (0.0-7.3); Platelet Count 177 K/mm3 (140-440); Red Blood Count 4.86 M/mm3 (3.65-5.03)
[2017-12-09 15:44] LABS: BUN/Creatinine Ratio 5; Blood Urea Nitrogen 6 mg/dL (9-20); Calcium 8.7 mg/dL (8.4-10.2); Hemolysis Index 5
--- NOTE | 2017-12-09 18:10 | Emergency Department Report ---
HPI - General Chief Complaint: Dizziness Time Seen by Provider: 12/09/17 15:11 - HPI HPI: Patient is a 37-year-old black male who is presenting with 4 days of intermittent, productive cough that causes chest pains. Patient states feels like a tightness in the chest. Patient states is 6 out of 10 severity is no radiation into the neck or arms. Patient also has had a cough productive of yellow sputum. Patient states she's been really fatigued and tired and sleeping a lot, she states he has a history of asthma and blood pressure has not been taken his medication. he denies any fevers, nausea, chest pain, shortness of breath, dizziness, headache, vomiting, abdominal pain at this time. ED Past Medical Hx - Past Medical History Hx Hypertension: Yes Hx Asthma: Yes - Surgical History Additional Surgical History: amputated left 1st toe. - Social History Smoking Status: Current Every Day Smoker Substance Use Type: Alcohol, Marijuana - Medications Home Medications: Home Medications Medication Instructions Recorded Confirmed Last Taken Type Albuterol Sulfate [Albuterol 0.63% 0.63 mg IH TID PRN #1 box 12/05/16 Unknown Rx NEBS] Azithromycin [Zithromax TAB] 250 mg PO QDAY #6 tablet 12/05/16 Unknown Rx Compressor, For Nebulizer [Ebase 1 each MC TID PRN #1 each 12/05/16 Unknown Rx Controller] Ipratropium [Atrovent NEB] 0.5 mg IH Q6HRT #1 box 12/05/16 Unknown Rx Ipratropium [Atrovent NEB] 0.5 mg IH Q6HRT PRN #1 box 12/05/16 Unknown Rx Prednisone [predniSONE 10 mg 10 mg PO .TAPER #1 tab.ds.pk 12/05/16 Unknown Rx (6-Day Pack, 21 Tabs)] ALBUTEROL Inhaler [ProAir HFA 2 puff IH QID PRN #1 inhalation 12/09/17 Unknown Rx Inhaler] Benzonatate [Tessalon Perles] 100 mg PO Q8HR #24 capsule 12/09/17 Unknown Rx amLODIPine [Norvasc] 5 mg PO DAILY #40 tab 12/09/17 Unknown Rx guaiFENesin [Mucinex] 600 mg PO BID #20 tab.er.12h 12/09/17 Unknown Rx predniSONE [Deltasone] 20 mg PO QDAY #5 tablet 12/09/17 Unknown Rx ED Review of Systems ROS: Stated complaint: CHEST PAIN Other details as noted in HPI Constitutional: denies: chills, fever Eyes: denies: eye pain, eye discharge, vision change ENT: denies: ear pain, throat pain Respiratory: denies: cough, shortness of breath, wheezing Cardiovascular: denies: chest pain, palpitations Endocrine: no symptoms reported Gastrointestinal: denies: abdominal pain, nausea, diarrhea Genitourinary: denies: urgency, dysuria Musculoskeletal: denies: back pain, joint swelling, arthralgia Skin: denies: rash, lesions Neurological: denies: headache, weakness, paresthesias Psychiatric: denies: anxiety, depression Hematological/Lymphatic: denies: easy bleeding, easy bruising Physical Exam - Physical Exam Vital Signs: Vital Signs 12/09/17 14:32 Temperature 98.5 F Pulse Rate 84 Respiratory 18 Rate Blood Pressure 162/97 O2 Sat by Pulse 99 Oximetry Physical Exam: GENERAL: Alert and oriented x3, no apparent distress, Normal Gait, atraumatic. HEAD: Head is normocephalic and a-traumatic. EYES: Extra ocular muscles are intact. Pupils are equal, round, and reactive to light and accommodation. EARS: symetrical, atraumatic, non tender, ear canal clear and moderate cerumen, tympanic membrance non inflamed. gross auditory nml bilaterally. NOSE: Nose symetrical, Nontender,Nares appeared normal. MOUTH:Mouth is well hydrated and without lesions. Tonsils nonerythematous or swollen, Uvula midline, Tongue not elevated. Mucous membranes are moist. Posterior pharynx clear, no exudate or lesions. Patent airways. NECK: Supple. Non edematous, No carotid bruits. No lymphadenopathy or thyromegaly. No C-spine tenderness LUNGS: Symetrical with respiration, No wheezing, no rales or crackles, CTAB. HEART: S1, S2 present, regular rate and rhythm without murmur, no rubs, no gallops. Non tender to palpation ABDOMEN: No organomegaly was noted,Positive bowel sounds, soft, and non- distended. . Nontender to palpation on all Quadrants, NO CVA tenderness. BACK: Full range of motion, no spinal tenderness, nontender to palpation. BREAST: Symetrical, Supple bilaterally, No Masses, lumps, lesions, ulcerations. GENITOURINARY: External genitalia without erythema, exudate or discharge. Vaginal vault is without discharge. Cervix is of normal color without lesion. Cervical os is closed. No bleeding noted. Uterus is noted to be of normal size and nontender. No cervical motion tenderness. No masses are palpated. The adnexa are without masses or tenderness. UROGENITAL: No scrotal mass, Scrotum non tender to palpation bilaterally, no hernia, no scars or penile discharge. EXTREMITIES/MUSCULOSKELETAL: No cyanosis, clubbing, rash, lesions or edema. Full ROM bilaterally. UE/LE Pulses 2+ bilaterally. LE and UE 5+ strength bilaterally, straight leg raise negative bilaterally NEUROLOGIC: The patient is cooperative with no focal neurologic deficits. Cranial nerves II through XII are grossly intact. Normal speech. Normal sensation in bilateral upper and lower extremities, No loss of sensation, No facial droop, Negative rhomberg. PSYCHIATRIC: Mood is congruent with affect, denies suicidal or homicidal ideations. SKIN: Warm and dry, No lesions, No ulceration or induration present. ED Course Vital Signs 12/09/17 14:32 Temperature 98.5 F Pulse Rate 84 Respiratory 18 Rate Blood Pressure 162/97 O2 Sat by Pulse 99 Oximetry ED Medical Decision Making - Lab Data Result diagrams: 12/09/17 15:19 12/09/17 15: Laboratory Last Values WBC 7.2 K/mm3 (4.5-11.0) 12/09/17 15: RBC 4.86 M/mm3 (3.65-5.03) 12/09/17 15: Hgb 14.8 gm/dl (11.8-15.2) 12/09/17 15:19 Hct 43.6 % (35.5-45.6) 12/09/17 15: MCV 90 fl (84-94) 12/09/17 15: MCH 30 pg (28-32) 12/09/17 15: MCHC 34 % (32-34) 12/09/17 15: RDW 14.0 % (13.2-15.2) 12/09/17 15: Plt Count 177 K/mm3 (140-440) 12/09/17 15: Lymph % (Auto) 25.2 % (13.4-35.0) 12/09/17 15:19 Coffee % (Auto) 8.8 % (0.0-7.3) H 12/09/17 15:19 Eos % (Auto) 6.2 % (0.0-4.3) H 12/09/17 15:19 Baso % (Auto) 0.8 % (0.0-1.8) 12/09/17 15:19 Lymph # 1.8 K/mm3 (1.2-5.4) 12/09/17 15:19 Coffee # 0.6 K/mm3 (0.0-0.8) 12/09/17 15:19 Eos # 0.4 K/mm3 (0.0-0.4) 12/09/17 15:19 Baso # 0.1 K/mm3 (0.0-0.1) 12/09/17 15:19 Seg Neutrophils % 59.0 % (40.0-70.0) 12/09/17 15:19 Seg Neutrophils # 4.2 K/mm3 (1.8-7.7) 12/09/17 15:19 Sodium 137 mmol/L (137-145) 12/09/17 15:19 Potassium 3.9 mmol/L (3.6-5.0) 12/09/17 15:19 Chloride 99.6 mmol/L (98-107) 12/09/17 15:19 Carbon Dioxide 28 mmol/L (22-30) 12/09/17 15:19 Anion Gap 13 mmol/L 12/09/17 15:19 BUN 6 mg/dL (9-20) L 12/09/17 15:19 Creatinine 1.2 mg/dL (0.8-1.5) 12/09/17 15:19 Estimated GFR > 60 ml/min 12/09/17 15:19 BUN/Creatinine Ratio 5 % 12/09/17 15:19 Glucose 132 mg/dL (75-100) H 12/09/17 15:19 Calcium 8.7 mg/dL (8.4-10.2) 12/09/17 15:19 - EKG Data EKG shows normal: sinus rhythm Rate: normal - Radiology Data Radiology results: report reviewed, image reviewed - Medical Decision Making 29-year-old male presents with asthma exacerbation with bronchitis ED course: Patient received CBC, CMP, chest x-ray and EKG done patient received a Solu-Medrol, albuterol and Atrovent. She received about our respiratory breathing treatment. Post lung evaluation: Lungs sounds clear, mild wheezing bilaterally, no use of his history of muscle Patient is in no acute or respiratory distress, his satting at 99% oxygen in room air He understands her instructions given I discussed the patient follow up with primary care physician as referred. Critical care attestation.: If time is entered above; I have spent that time in minutes in the direct care of this critically ill patient, excluding procedure time. ED Disposition Clinical Impression: Bronchitis, Upper respiratory infection with cough and congestion Asthma exacerbation Qualifiers: Asthma severity: mild Asthma persistence: intermittent Qualified Code(s): J45.21 - Mild intermittent asthma with (acute) exacerbation Disposition: TO HOME OR SELFCARE Is pt being admited?: No Does the pt Need Aspirin: No Condition: Stable Instructions: Upper Respiratory Infection (ED), Acute Bronchitis (ED), Chronic Bronchitis (ED), Bronchospasm (ED) Additional Instructions: Make sure to follow up with the primary care physician as discussed. Take all your medications as you've been prescribed. If you have any worsening symptoms or develop new symptoms please return to ED immediately. Prescriptions: ALBUTEROL Inhaler [ProAir HFA Inhaler] 2 puff IH QID PRN #1 inhalation PRN Reason: Shortness Of Breath amLODIPine [Norvasc] 5 mg PO DAILY #40 tab Benzonatate [Tessalon Perles] 100 mg PO Q8HR #24 capsule guaiFENesin [Mucinex] 600 mg PO BID #20 tab.er.12h predniSONE [Deltasone] 20 mg PO QDAY #5 tablet Referrals: PRIMARY CARE, [Primary Care Provider] - 3-5 Days [facility] [Outside] - 3-5 Days [facility] [Outside] - 3-5 Days [facility] [Outside] - 3-[address] [facility] [Outside] - 3-5 Days [facility] [Outside] - 3-5 Days Forms: Work/School Release Form(ED) Time of Disposition: 18:20
[2017-12-09 18:38] VITALS: BP 150/92
--- NOTE | 2017-12-09 18:47 | XRay Report ---
FINAL REPORT PROCEDURE: Chest. TECHNIQUE: PA and lateral views. HISTORY: Cough. COMPARISON: No prior studies are available for comparison. FINDINGS: The heart and mediastinum appear normal. The lungs are clear and well expanded. There are no pleural effusions. The soft tissues and regional skeleton are unremarkable. IMPRESSION: Normal study.
== END 2017-12-09 18:37 | disposition home or self-care (01) ==
LOC: ED 14:30
DX: J45.21 Mild intermittent asthma with (acute) exacerbation (principal); I10 Essential (primary) hypertension; F17.200 Nicotine dependence, unspecified, uncomplicated; F12.10 Cannabis abuse, uncomplicated; Z91.013 Allergy to seafood
CPT/HCPCS: 36415; 71046; 80048; 85025; 93005; 93010; 94640; 96361; 96374; 99284; J2930; J7030

== ENCOUNTER 2019-01-26 09:22 | Emergency (ER) | payer OTHER ==
[2019-01-26 09:29] VITALS: BP 143/103
--- NOTE | 2019-01-26 10:20 | Emergency Department Report ---
ED General Adult HPI - General Chief complaint: Extremity Problem,Nontraumatic Stated complaint: SWOLLEN LEGS/LFT FOOT PAIN Time Seen by Provider: 01/26/19 10:09 Source: patient Mode of arrival: Ambulatory Limitations: No Limitations - History of Present Illness Initial comments: Mr. Chavarria is a 38 yo male with hx of HTN, asthma who presents with bilateral leg swelling for several weeks. No pain. No dyspnea. Does not have PCP> -: Gradual, week(s) (several) Location: left, right, lower extremity Severity scale (0 -10): 10 Consistency: constant Improves with: none Worsens with: none - Related Data Previous Rx's Medication Instructions Recorded Last Taken Type Albuterol Sulfate [Albuterol 0.63% 0.63 mg IH TID PRN #1 box 12/05/16 Unknown Rx NEBS] Azithromycin [Zithromax TAB] 250 mg PO QDAY #6 tablet 12/05/16 Unknown Rx Compressor, For Nebulizer [Ebase 1 each MC TID PRN #1 each 12/05/16 Unknown Rx Controller] Ipratropium [Atrovent NEB] 0.5 mg IH Q6HRT #1 box 12/05/16 Unknown Rx Ipratropium [Atrovent NEB] 0.5 mg IH Q6HRT PRN #1 box 12/05/16 Unknown Rx Prednisone [predniSONE 10 mg 10 mg PO .TAPER #1 tab.ds.pk 12/05/16 Unknown Rx (6-Day Pack, 21 Tabs)] ALBUTEROL Inhaler (OR & NICU) 2 puff IH QID PRN #1 inhalation 12/09/17 Unknown Rx [ProAir HFA Inhaler] Benzonatate [Tessalon Perles] 100 mg PO Q8HR #24 capsule 12/09/17 Unknown Rx amLODIPine [Norvasc] 5 mg PO DAILY #40 tab 12/09/17 Unknown Rx guaiFENesin [Mucinex] 600 mg PO BID #20 tab.er.12h 12/09/17 Unknown Rx predniSONE [Deltasone] 20 mg PO QDAY #5 tablet 12/09/17 Unknown Rx hydroCHLOROthiazide [HCTZ] 25 mg PO QDAY 30 Days #30 tablet 01/26/19 Unknown Rx Allergies Allergy/AdvReac Type Severity Reaction Status Date / Time seafood Allergy Swelling Uncoded 12/09/17 14:32 ED Review of Systems ROS: Stated complaint: SWOLLEN LEGS/LFT FOOT PAIN Other details as noted in HPI Comment: All other systems reviewed and negative Constitutional: denies: fever, malaise Respiratory: denies: cough, shortness of breath Cardiovascular: denies: chest pain ED Past Medical Hx - Past Medical History Previous Medical History?: Yes Hx Hypertension: Yes Hx Asthma: Yes - Surgical History Past Surgical History?: Yes Additional Surgical History: amputated left 1st toe. - Social History Smoking Status: Current Every Day Smoker Substance Use Type: Alcohol (daily) - Medications Home Medications: Home Medications Medication Instructions Recorded Confirmed Last Taken Type Albuterol Sulfate [Albuterol 0.63% 0.63 mg IH TID PRN #1 box 12/05/16 Unknown Rx NEBS] Azithromycin [Zithromax TAB] 250 mg PO QDAY #6 tablet 12/05/16 Unknown Rx Compressor, For Nebulizer [Ebase 1 each MC TID PRN #1 each 12/05/16 Unknown Rx Controller] Ipratropium [Atrovent NEB] 0.5 mg IH Q6HRT #1 box 12/05/16 Unknown Rx Ipratropium [Atrovent NEB] 0.5 mg IH Q6HRT PRN #1 box 12/05/16 Unknown Rx Prednisone [predniSONE 10 mg 10 mg PO .TAPER #1 tab.ds.pk 12/05/16 Unknown Rx (6-Day Pack, 21 Tabs)] ALBUTEROL Inhaler (OR & NICU) 2 puff IH QID PRN #1 inhalation 12/09/17 Unknown Rx [ProAir HFA Inhaler] Benzonatate [Tessalon Perles] 100 mg PO Q8HR #24 capsule 12/09/17 Unknown Rx amLODIPine [Norvasc] 5 mg PO DAILY #40 tab 12/09/17 Unknown Rx guaiFENesin [Mucinex] 600 mg PO BID #20 tab.er.12h 12/09/17 Unknown Rx predniSONE [Deltasone] 20 mg PO QDAY #5 tablet 12/09/17 Unknown Rx hydroCHLOROthiazide [HCTZ] 25 mg PO QDAY 30 Days #30 tablet 01/26/19 Unknown Rx ED Physical Exam - General Limitations: No Limitations General appearance: alert, in no apparent distress - Head Head exam: Present: atraumatic, normocephalic - Eye Eye exam: Present: normal appearance - ENT ENT exam: Present: mucous membranes moist - Neck Neck exam: Present: normal inspection, full ROM - Respiratory Respiratory exam: Present: normal lung sounds bilaterally. Absent: respiratory distress, wheezes, rales, rhonchi - Cardiovascular Cardiovascular Exam: Present: regular rate, normal rhythm, normal heart sounds. Absent: systolic murmur, diastolic murmur, rubs, gallop - GI/Abdominal GI/Abdominal exam: Present: soft, normal bowel sounds. Absent: distended, tenderness, guarding - Rectal Rectal exam: Present: deferred - Extremities Exam Extremities exam: Present: pedal edema, other (3+ pitting edema in lower extremities bilaterally) - Back Exam Back exam: Present: normal inspection - Neurological Exam Neurological exam: Present: alert, oriented X3 - Psychiatric Psychiatric exam: Present: normal affect, normal mood - Skin Skin exam: Present: warm, dry, intact, normal color. Absent: rash ED Course Vital Signs 01/26/19 09:28 Temperature 98.1 F Pulse Rate 96 H Respiratory 18 Rate Blood Pressure 143/103 O2 Sat by Pulse 96 Oximetry ED Medical Decision Making - Medical Decision Making Bilateral lower extremity edema. Extensive verbal education provided to Mr. Chavarria. He understands the need to have kidney/heart/liver evaluated by outside [facility]. rx: HCTZ to address hypertension referred to outside clinic, Mr. Chavarria drinks alcohol daily. I informed him that alcohol is known to cause liver damage. Critical care attestation.: If time is entered above; I have spent that time in minutes in the direct care of this critically ill patient, excluding procedure time. ED Disposition Clinical Impression: Bilateral lower extremity edema Disposition: [id number] TO HOME OR SELFCARE Is pt being admited?: No Does the pt Need Aspirin: No Condition: Stable Instructions: Leg Edema (ED) Prescriptions: hydroCHLOROthiazide [HCTZ] 25 mg PO QDAY 30 Days #30 tablet Referrals: [facility] [Outside] - 3-5 Days
== END 2019-01-26 10:36 | disposition home or self-care (01) ==
LOC: ED 09:22
DX: R60.0 Localized edema (principal); I10 Essential (primary) hypertension; J45.909 Unspecified asthma, uncomplicated; F17.200 Nicotine dependence, unspecified, uncomplicated; Z91.013 Allergy to seafood; Z89.412 Acquired absence of left great toe
CPT/HCPCS: 99282